=== PATIENT | female | born 1930 | race Caucasian/White ===

== ENCOUNTER 2017-11-23 12:51 | Outpatient (CLI) | payer MEDICARE, OTHER ==
--- NOTE | 2017-11-23 14:09 | Diagnostic Imaging Report ---
Indication: Cough Technique: 2 views of the chest Comparison: 07/02/2012 Findings: Lungs and pleural spaces are clear. The heart size is normal. 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 There are mild degenerative changes of the thoracic and lumbar spine No significant interim change Impression: No acute process
== END 2017-11-23 14:51 | disposition home or self-care (01) ==
LOC: RAD 12:51
DX: R05 Cough (principal); K44.9 Diaphragmatic hernia without obstruction or gangrene
CPT/HCPCS: 71046